=== PATIENT | male | born 1970 | race Caucasian/White ===

== ENCOUNTER 2016-08-19 17:11 | Emergency (ER) | payer BC, OTHER ==
[~2016-08-19] VITALS: Ht 172.7 cm; Wt 111.3 kg
[~2016-08-19 17:11] MED LIST: LOSA25TA31 PO; PANT20 PO
[2016-08-19 17:12] VITALS: BP 140/93; PULSE 85; RESP 14; TEMP 97.5; O2SAT 97
[2016-08-19 18:43] LABS: AUTOMATED NEUTROPHIL # 11.1 TH/MM3 (1.8-7.7); BASOPHIL % 0.1 % (0.0-2.0); EOSINOPHIL # 0.1 TH/MM3 (0-0.4); EOSINOPHIL % 0.7 % (0.0-4.0); HEMATOCRIT 46.5 % (39.0-51.0); HEMO FLAGS DIFF FINAL; LYMPH % 5.6 % (9.0-44.0); LYMPHOCYTE # 0.7 TH/MM3 (1.0-4.8); MEAN CELL VOLUME 78.2 FL (80.0-100.0); MEAN CORPUSCULAR HEMOGLOBIN 26.5 PG (27.0-34.0); MEAN CORPUSCULAR HGB CONC 33.9 % (32.0-36.0); MONO % 4.6 % (0.0-8.0); PLATELET COUNT 230 TH/MM3 (150-450); RED BLOOD COUNT 5.95 MIL/MM3 (4.50-5.90); RED CELL DISTRIBUTION WIDTH 14.1 % (11.6-17.2); WHITE BLOOD COUNT 12.5 TH/MM3 (4.0-11.0)
[2016-08-19 19:03] LABS: ANION GAP 8 MEQ/L (5-15); BICARBONATE 28.9 MEQ/L (21.0-32.0); BLOOD UREA NITROGEN 14 MG/DL (7-18); CHLORIDE 105 MEQ/L (98-107); GLOMERULAR FILTRATION RATE 62 ML/MIN (>89); POTASSIUM 4.3 MEQ/L (3.5-5.1); SODIUM (NA) 142 MEQ/L (136-145)
[2016-08-19 19:07] LABS: CREATINE KINASE 287 U/L (39-308)
[2016-08-19 19:20] LABS: CKMB 6.7 NG/ML (0.5-3.6)
[2016-08-19] MEDS ORDERED: ZOFR4TAB3 SL (21:13)
--- NOTE | 2016-08-19 21:13 | PD ---
HPI Chief Complaint: Abdominal Pain Time Seen by Provider: 20:32 Travel History International Travel<30 days: No Contact w/Intl Traveler<30days: No Traveled to known affect area: No History of Present Illness HPI 46 y.o male presents to ED with complaints of abdominal pain, diarrhea and vomiting that started this morning. He was doing fine yesterday, and the last food he ate was pizza the night before. Nobody else at home has similar symptoms. He denies any recent travel. He states that he's had about 10 liquid and loose BM today and vomited about 6 times. He denies any hematemesis or hematochezia. He states that he's very bloated and complains of rotten egg smell with burping. ROS is positive for chest discomfort, sweating and bloating. He denies any headache, fever, chills or SOB. PFSH Social History Alcohol Use: Yes Tobacco Use: No Substance Use: No Allergies-Medications (Allergen,Severity, Reaction): Coded Allergies: Aspirin (Verified Allergy, Unknown, 10/05/15) Penicillin (Verified Allergy, Unknown, 10/05/15) Reported Meds & Prescriptions Reported Meds & Active Scripts Active Zofran Odt (Ondansetron Odt) 4 Mg Tab 4 Mg SL Q8HR PRN Reported Protonix (Pantoprazole Sodium) 20 Mg Tab 20 Mg PO BID Losartan (Losartan Potassium) 25 Mg Tab 25 Mg PO DAILY Review of Systems Except as stated in HPI: all other systems reviewed are Neg General / Constitutional: No: Fever, Chills Eyes: No: Blurred Vision, Redness HENT: No: Headaches, Sore Throat, Congestion Cardiovascular: Positive: Chest Pain or Discomfort, No: Palpitations Respiratory: No: Cough, Shortness of Breath, Hemoptysis, Night Sweats Gastrointestinal: Positive: Nausea, Vomiting, Diarrhea, Abdominal Pain (mild discomfort ), Changes in Bowel Habits, No: Constipation Genitourinary: No: Urgency, Frequency Musculoskeletal: No: Myalgias, Weakness Skin: No Rash Neurologic: No: Weakness, Dizziness, Headache Psychiatric: No: Anxiety Physical Exam Narrative GENERAL: 46 y.o male, well-developed, well-nourished, alert and oriented, comfortably lying in bed SKIN: Warm and dry HEAD: Atraumatic. Normocephalic. EYES: Pupils equal and round. No scleral icterus. No injection or drainage. ENT: No nasal bleeding or discharge. Mucous membranes pink, but mildly dry NECK: Trachea midline. No JVD. CARDIOVASCULAR: Regular rate and rhythm. RESPIRATORY: No accessory muscle use. Clear to auscultation. Breath sounds equal bilaterally. GASTROINTESTINAL: Abdomen soft, non-tender, nondistended. No guarding. Hepatic and splenic margins not palpable. MUSCULOSKELETAL: Extremities without clubbing, cyanosis, or edema. No obvious deformities. NEUROLOGICAL: Awake and alert. No obvious cranial nerve deficits. Motor grossly within normal limits. Five out of 5 muscle strength in the arms and legs. Normal speech. PSYCHIATRIC: Appropriate mood and affect; insight and judgment normal. Data Data Last Documented VS Vital Signs Date Time Temp Pulse Resp B/P Pulse Ox O2 Delivery O2 Flow Rate FiO2 08/19/16 21:25 98.5 87 16 143/68 97 08/19/16 17:12 Room Air Orders Electrocardiogram (08/19/16 17:49) Complete Blood Count With Diff (08/19/16 17:49) Basic Metabolic Panel (Bmp) (08/19/16 17:49) Ckmb (Isoenzyme) Profile (08/19/16 17:49) Troponin I (08/19/16 17:49) CKMB (08/19/16 18:19) CKMB% (08/19/16 18:19) Ondansetron Odt (Zofran Odt) (08/19/16 21:15) Labs Laboratory Tests Test 08/19/16 18:19 White Blood Count 12.5 TH/MM3 Red Blood Count 5.95 MIL/MM3 Hemoglobin 15.8 GM/DL Hematocrit 46.5 % Mean Corpuscular Volume 78.2 FL Mean Corpuscular Hemoglobin 26.5 PG Mean Corpuscular Hemoglobin 33.9 % Concent Red Cell Distribution Width 14.1 % Platelet Count 230 TH/MM3 Mean Platelet Volume 9.0 FL Neutrophils (%) (Auto) 89.0 % Lymphocytes (%) (Auto) 5.6 % Monocytes (%) (Auto) 4.6 % Eosinophils (%) (Auto) 0.7 % Basophils (%) (Auto) 0.1 % Neutrophils # (Auto) 11.1 TH/MM3 Lymphocytes # (Auto) 0.7 TH/MM3 Monocytes # (Auto) 0.6 TH/MM3 Eosinophils # (Auto) 0.1 TH/MM3 Basophils # (Auto) 0.0 TH/MM3 CBC Comment DIFF FINAL Differential Comment Sodium Level 142 MEQ/L Potassium Level 4.3 MEQ/L Chloride Level 105 MEQ/L Carbon Dioxide Level 28.9 MEQ/L Anion Gap 8 MEQ/L Blood Urea Nitrogen 14 MG/DL Creatinine 1.25 MG/DL Estimat Glomerular Filtration 62 ML/MIN Rate Random Glucose 114 MG/DL Calcium Level 8.9 MG/DL Total Creatine Kinase 287 U/L Creatine Kinase MB 6.7 NG/ML Troponin I LESS THAN 0.02 NG/ML MDM Medical Decision Making Medical Screen Exam Complete: Yes Emergency Medical Condition: Yes Medical Record Reviewed: Yes Differential Diagnosis Constipation, Gastritis, Acute Cholecystitis, Biliary Colic, Pancreatitis, [place]S , Hepatitis, Bowel Obstruction, Cystitis, Mesenteric Ischemia, AAA, Appendicitis , Renal Stone/Hydronephrosis, GERD, perforated viscous Narrative Course CBC & BMP Diagram 08/19/16 18:19 Troponin is less than 0.02 EKG reveals no ischemic injury pattern. The patient's abdomen is soft and nondistended. Given nausea vomiting diarrhea with no fever and essentially normal blood work the patient is considered safe for discharge home. His abdominal exam is no tenderness benign. He is ready for discharge. Return precautions discussed. Diagnosis Primary Impression: Gastroenteritis Referrals: Primary Care Physician 2 days Additional Instructions: You have a choice when it comes to health care, and we are glad that you chose [facility]. Hopefully, we have met your expectations on today's visit. You are welcome to return to [facility] at any time, as we are committed to meeting the health care needs of our community. Med/Other Pt SpecificInfo: Prescription(s) given Scripts Ondansetron Odt (Zofran Odt)4 Mg Tab4 Mg SL Q8HR PRN (Nausea/Vomiting) #10 TAB Ref 0 Prov:Jeremiah Christian MD 08/19/16 Disposition: 01 DISCHARGE HOME Condition: Stable Jeremiah Christian MD Aug 19, 2016 21:13
[2016-08-19] MEDS ORDERED: ONDANSETRON ODT 4 MG TAB PO ONE (21:15)
[2016-08-19 21:25] VITALS: BP 143/68; TEMP 98.5
[2016-08-19] MEDS ORDERED: LOSA25TA PO (21:55)
[2016-08-19] MEDS ORDERED: PANT20 PO (21:55)
--- NOTE | 2016-08-20 22:33 | EKG ---
Date Performed: 08/19/2016 Time Performed: 18:11:00 PTAGE: 46 years EKG: Sinus rhythm NONSPECIFIC T-WAVE ABNORMALITY BORDERLINE ECG NO PREVIOUS TRACING DOCTOR: Josesito Christian Interpretating Date/Time 08/20/2016 22:31:43
== END 2016-08-19 21:40 | disposition home or self-care (01) ==
LOC: NEPC 17:11
DX: K52.9 Noninfective gastroenteritis and colitis, unspecified (principal); R94.31 Abnormal electrocardiogram [ECG] [EKG]; Z88.0 Allergy status to penicillin; Z88.6 Allergy status to analgesic agent
CPT/HCPCS: 80048; 82550; 82552; 84484; 85025; 93005